=== PATIENT | female | born 1980 ===

== ENCOUNTER 2024-05-11 08:16 | Outpatient (REF) | payer MEDICAID, SELFPAY ==
--- NOTE | ~2024-05-11 | XR_ITS ---
EXAMINATION: XR HIP LEFT 3 VIEWS CLINICAL INFORMATION: Pain in left hip M25.552. COMPARISON: None available. TECHNIQUE: AP view of the pelvis as well as AP and frog-leg lateral views of the left hip. FINDINGS: No acute fracture or dislocation. No significant joint space narrowing. Tiny bilateral acetabular marginal osteophytes. No osseous erosion. No evidence of femoral head avascular necrosis. Surgical coils and clips within the left lower quadrant. No abnormal soft tissue calcification. XR/XR hip LT min 2V IMPRESSION: Minimal bilateral hip arthrosis. Electronically signed by: Carlos Luis MD 07/06/2024 12:12 PM [facility]
== END 2024-05-11 08:17 | disposition home or self-care (01) ==
LOC: HO.HOSX 08:16
PROVIDERS: Visit Provider Physician Assistant
DX: M25.552 Pain in left hip (principal); M53.3 Sacrococcygeal disorders, not elsewhere classified; M76.892 Other specified enthesopathies of left lower limb, excluding foot
CPT/HCPCS: 73502; 99212

== ENCOUNTER 2024-05-11 10:21 | Outpatient (AMB) | payer MEDICAID, SELFPAY ==
--- NOTE | 2024-05-11 10:38 | A.OFFVIS_ITS ---
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 Patient reports constant pain for about 1-1.5 months after she had a slip and fall. Her pain increases with sleeping on her side, prolong sitting, standing and bending over. Her pain is located in her lower back that radiates down her leg and into her groin area. States having a tingling sensation and denies numbness. Finds relief with ibuprofen and Tylenol. 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 She reports she slipped and fell landing on her left hip, about 2 months ago. She currently states she has constant pain in her groin area that radiates up to her lower back and down to her leg. Her pain is aggravated with activities, walking long distances, going downstairs, sleeping on her left side, prolonged sitting and bending. She also reports a tingling sensation however she denies any numbness. She takes ibuprofen and Tylenol that provides her relief for a few hours. 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 Review of Systems Const All systems reviewed & are unremarkable except as noted in HPI and below Physical Exam Vital Signs: BMI result Body Mass Index 39.6 Const General: cooperative, healthy appearing, comfortable, no acute distress, well developed and alert Orientation/consciousness: patient oriented x3 HEENT Head: Yes normal to inspection, Yes normocephalic and Yes atraumatic Eyes General: appearance normal, both eyes and all related structures Resp Effort & Inspection: normal respiratory effort and able to speak in complete sentences Cardio Rate: regular rate Peripheral pulses: Peripheral pulses 2+ throughout GI Palpation (GI): Soft to palpation Skin Lesions: no lesions Rashes: no rashes Neuro General: patient oriented x3 Extrem Other: Left hip: Normal to inspection. No pain with ROM of the hip. Pain along the greater trochanter. No pain with hip flexion or abduction. Positive tenderness along the SI joint, Positive SLR. NVI. Results Reviewed Results Reviewed: Xrays were obtained in the office today and personally reviewed by me of the left hip are negative for severe oa Assessment & Plan Assessment & Plan (1) Pain of left sacroiliac joint: Code(s): M53.3 - Sacrococcygeal disorders, not elsewhere classified Category: Medical (2) Tendonitis of left hip flexor: Code(s): M76.892 - Other specified enthesopathies of left lower limb, excluding foot Category: Medical Plan We discussed options which include PT, NSAIDs and injections. The patient will defer on the injection today and proceed with PT and NSAIDs. A prescription of Celebrex was sent to her pharmacy to take twice a day for 2 weeks to help with her discomfort. If symptoms persist, she will contact me for an injection, oth erwise, PRN. Orders: Orders PT Evaluation and Treatment Today M53.3 - Sacrococcygeal disorders, not elsewhere classified, M76.892 - Other specified enthesopathies of left lower limb, excluding foot XR hip LT min 2V Today M25.552 - Pain in left hip Medications: New celecoxib (Celebrex) 200 mg PO BID 60 caps 3RF 30 days Patient Instructions: Scribed for Glenys Fitzgerald PA-C, by Guanako Long emergency medical service manager, on 05/11/2024 at 10:00 AM EST.? I, Glenys Fitzgerald PA-C, have personally reviewed and agree with the information entered by the scribe. Coding Level of Care Code New Pt Level 3 (99205) Complex EM visit Add On G2211 Diagnoses Pain of left sacroiliac joint M53.3 Tendonitis of left hip flexor M76.892
[2024-05-11 10:44] VITALS: BMI 39.6
== END 2024-05-11 13:25 | disposition home or self-care (01) ==
PROVIDERS: PCP Nurse Practitioner Family; Visit Provider Physician Assistant
DX: M53.3 Sacrococcygeal disorders, not elsewhere classified (principal); M76.892 Other specified enthesopathies of left lower limb, excluding foot
CPT/HCPCS: 99203

== ENCOUNTER 2024-08-04 10:03 | Outpatient (AMB) | payer MEDICAID, SELFPAY ==
--- NOTE | 2024-08-04 10:07 | MHC.OFFVIS ---
Vital Signs 08/04/24 10:10 Height 5 ft Weight 206 lb BMI 40.2 BP 135/73 Blood Pressure Location Lt brachial Position Sitting Respiration 16 Pulse 79 Pulse Source Pulse Oximeter Pulse Oximetry (%) 96 Oxygen Delivery Method Room Air Intake Visit Reasons: Left lumbar radiculopathy Smoking Pipe Driller And Threader Required: Yes Smoking Pipe Driller And Threader Services: Smoking Pipe Driller And Threader Present Smoking Pipe Driller And Threader Name: [id number] Martinez Allergies No Known Allergies Allergy (Verified 08/04/24 10:12) Medication List - Last Reconciled 08/04/24 by LUCERO Pérez acetaminophen 1,000 mg PO TID PRN benzonatate 200 mg PO BID-TID PRN bismuth subsalicylate 524 mg PO QID PRN clotrimazole 1% 1 appful vaginal BEDTIME ibuprofen 800 mg PO Q8H PRN ketoconazole 2% 1 appl topical BID loperamide 2 mg PO Q4H PRN metronidazole 500 mg PO BID nystatin 1 appl topical QID PNV,calcium 72-iron,carb-folic 29 mg iron- 1 mg 1 tab PO DAILY psyllium 1 packet PO DAILY HPI HPI Left lumbar radiculopathy: Details: Patient is a pleasant 44 years old Chinese speaking, morbidly obese female with history of chronic low back pain, sacroiliac joint pain, hip arthritis, prediabetes, and obesity, presents today for evaluation for lower back pain with left sided radiculopathy. Pain has been present for about 5 months. Reports slip and fall on her left hip last summer. Back pain is axial and also radiates into her left buttock and into left lateral hip and left groin and into left anterior thigh. Pain does not radiate past knee level. She also presents with left groin pain especially with getting out of car or bed. Denies previous spine or hip surgery. Minimal bilateral hip arthrosis noted on most recent hip xray. No spine imaging is available for review today. Pain affects her daily activities and functioning, mobility, work, sleep, social interactions. To this point she has not tried any dedicated conservative treatment in the forms of physical therapy, chiropractic, massages, TENS unit, acupuncture or injections. She was referred to [facility] in April 2024 but reports this is significantly far away from her home and she interested in PT closer to her home. 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 Denies any fever or chills, weakness, foot drop, bladder or bowel dysfunction, or saddle anesthesia. Pain is constant, rated at 9/10 and worse during the day and better with rest. Location: Lower back pain radiates into left lateral hip and anterior thigh and groin Duration: Chonic pain, worsening for past 5 months Characteristics of symptom or complaint: Aching, shooting, radiating, spasms, numbness, pressure, heavy, sore Aggravating or associated factors: Walking, sitting, bending, lifting, twisting, cold weather, sleep on left Relieving factors: Tylenol, Ibuprofen, activity modifications, hot shower Treatment: None [facility] Medical History (Updated 08/04/24 @ 10:39 by LUCERO Pérez) Low back pain radiating to left lower extremity Tendonitis of left hip flexor Pain of left sacroiliac joint Morbid obesity with BMI of 40.0-44.9, adult Social History (Updated 08/04/24 @ 18:45 by LUCERO Pérez) Patient Tobacco Use Status: Never used Tobacco Current occupational status: employed 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 Alert and oriented. Mood and affect appropriate. Follows and participates in conversation appropriately. Respiratory effort is unlabored. No cough. Able to transition from sit to stand unassisted. Ambulates with bilaterally normal heel strike and toe off. General: Yes no CVA tenderness Back/Spine/Pelvis Other: Patient is able to walk and stand on heels and tip toes with no difficulties demonstrating good motor tone. No limping. Can flex forward to 70-75 degrees and extend to 5-10 degrees before experiencing lumbar pain. Demonstrates 5/5 strength of quadriceps bilaterally as well as flexion/dorsiflexion of bilateral feet against resistance. 2+ pedal pulses bilaterally. Straight leg rise with dorsiflexion negative bilaterally. +2 patellar and achilles reflexes bilaterally. Facet loading test positive bilaterally. Opal sign, Vaughn?s, Gaenslen, Pelvic compression and Stinchfield tests are positive on the left. Moderate left groin pain with external left hip rotations. Valsalva maneuver negative. Back: no CVA tenderness Cervical Spine: cervical ROM normal, cervical muscular tenderness and No Cervical spine tenderness Thoracic/Lumbar Spine: thoracic and lumbar spine normal to inspection, No Thoracic/lumbar spine scar(s), Lasegue's sign negative, straight leg raise negative bilaterally, pain with thoraco-lumbar ROM, paraspinal muscle tenderness on the left greater than right, No thoracic spinal tenderness and No lumbar spinal tenderness Pelvis: buttock tenderness on the left Sacroiliac joints: on the right nontender and on the left tender to palpation Extrem General: Yes capillary refill normal, Yes no clubbing, cyanosis or edema and Yes no calf tenderness Results Reviewed Results Reviewed: XR HIP LEFT 3 VIEWS 05/11/24 CLINICAL INFORMATION: Pain in left hip M25.552. FINDINGS: No acute fracture or dislocation. No significant joint space narrowing. Tiny bilateral acetabular marginal osteophytes. No osseous erosion. No evidence of femoral head avascular necrosis. Surgical coils and clips within the left lower quadrant. No abnormal soft tissue calcification. IMPRESSION: Minimal bilateral hip arthrosis. Assessment & Plan Assessment & Plan (1) Morbid obesity with BMI of 40.0-44.9, adult: Code(s): E66.01 - Morbid (severe) obesity due to excess calories; Z68.41 - Body mass index [BMI] 40.0-44.9, adult Category: Medical (2) Low back pain radiating to left lower extremity: Code(s): M54.50 - Low back pain, unspecified; M79.605 - Pain in left leg Category: Medical (3) Sacroiliac joint pain: Code(s): M53.3 - Sacrococcygeal disorders, not elsewhere classified Category: Medical (4) Lumbar spondylosis: Code(s): M47.816 - Spondylosis without myelopathy or radiculopathy, lumbar region Category: Medical (5) Osteoarthritis of left hip: Code(s): M16.12 - Unilateral primary osteoarthritis, left hip Category: Medical Plan Lumbar spine and SIJ imaging to assess degree of degenerative changes, any subluxation, listhesis, compression fractures or pars defects. Recommend formal physical therapy to reduce low back, hip and SIJ pain and optimize mobility, improve strength, proprioception, and neuromuscular coordination. Script provided at PT location closer to patient's home. If no improvement with PT, will consider left SIJ vs left hip fluoroscopy guided therapeutic injection. Encouraged daily physical activity and home exercise, adequate hydration, weight loss, good posture, and activity modifications. All questions were answered and the patient is in agreement of plan. Follow up after PT/xray results and sooner as needed. Orders: Orders XR lumbar spine 4V min Today M53.3 - Sacrococcygeal disorders, not elsewhere classified, M54.50 - Low back pain, unspecified, M79.605 - Pain in left leg XR sacroiliac joint min 3V Today M53.3 - Sacrococcygeal disorders, not elsewhere classified PT Evaluation and Treatment Today M16.12 - Unilateral primary osteoarthritis, left hip, M47.816 - Spondylosis without myelopathy or radiculopathy, lumbar region, M53.3 - Sacrococcygeal disorders, not elsewhere classified, M54.50 - Low back pain, unspecified, M79.605 - Pain in left leg Coding Level of Care Code New Pt Level 4 (90852) Complex EM visit Add On G2211 Diagnoses Morbid obesity with BMI of 40.0-44.9, adult E66.01; Z68.41 Low back pain radiating to left lower extremity M54.50; M79.605 Sacroiliac joint pain M53.3 Lumbar spondylosis M47.816 Osteoarthritis of left hip M16.12
[2024-08-04 10:10] VITALS: BP 135/73; PULSE 79; RESP 16; O2SAT 96; BMI 40.2
== END 2024-08-04 10:46 | disposition home or self-care (01) ==
PROVIDERS: PCP Nurse Practitioner Family; Referring Provider Physician Assistant; Visit Provider Nurse Practitioner Family
DX: E66.01 Morbid (severe) obesity due to excess calories (principal); Z68.41 Body mass index [BMI] 40.0-44.9, adult; M54.50 Low back pain, unspecified; M79.605 Pain in left leg; M53.3 Sacrococcygeal disorders, not elsewhere classified; M47.816 Spondylosis without myelopathy or radiculopathy, lumbar region; M16.12 Unilateral primary osteoarthritis, left hip
CPT/HCPCS: 99204

== ENCOUNTER 2024-08-04 10:03 | Outpatient (REF) | payer MEDICAID, SELFPAY ==
--- NOTE | ~2024-08-04 | XR_ITS ---
EXAMINATION: XR SACROILIAC JOINT 3 OR MORE VIEWS HISTORY: M53.3 - Sacrococcygeal disorders, not elsewhere classified COMPARISON: There are no prior studies available for comparison. FINDINGS: Three views of the bilateral sacroiliac joints are submitted. There is increased sclerosis at the superior aspects of the joints which appears predominantly ileal in location. There is no fracture or dislocation. The joint spaces are maintained. No erosions are identified. The soft tissues are unremarkable. XR/XR sacroiliac joint min 3V IMPRESSION: Increased sclerosis at the superior aspects of the sacroiliac joints which appears predominantly ileal in location. No evidence of significant stenosis or erosions. Electronically signed by: Sylvester Watson MD 08/10/2024 09:25 AM [facility]
--- NOTE | ~2024-08-04 | XR_ITS ---
EXAMINATION: XR LUMBAR SPINE 4 OR MORE VIEWS HISTORY: M54.50 - Low back pain, unspecified COMPARISON: There are no prior studies for comparison. FINDINGS: AP, lateral, bilateral oblique and coned down views of the lumbar spine are submitted. Osseous mineralization is normal. Five nonrib-bearing lumbar vertebral bodies are identified, maintaining normal height and alignment without evidence of fracture or spondylolisthesis. The intervertebral disc spaces are preserved. The posterior elements are intact. There is no spondylolysis. The visualized paraspinal soft tissues are unremarkable. XR/XR lumbar spine 4V min IMPRESSION: Unremarkable examination of the lumbar spine. Electronically signed by: Sylvester Watson MD 08/10/2024 09:22 AM [facility]
== END 2024-08-04 10:04 | disposition home or self-care (01) ==
LOC: HO.XRAY 10:03
PROVIDERS: PCP Nurse Practitioner Family; Referring Provider Physician Assistant; Visit Provider Nurse Practitioner Family
DX: M54.50 Low back pain, unspecified (principal); M79.605 Pain in left leg; M53.3 Sacrococcygeal disorders, not elsewhere classified; M47.816 Spondylosis without myelopathy or radiculopathy, lumbar region; M16.12 Unilateral primary osteoarthritis, left hip; E66.01 Morbid (severe) obesity due to excess calories; Z68.41 Body mass index [BMI] 40.0-44.9, adult
CPT/HCPCS: 72110; 72202; 99212

== ENCOUNTER → 2024-08-04 10:59 | Outpatient (BNV) | payer MEDICAID, SELFPAY | PROVIDERS: PCP Nurse Practitioner Family; Referring Provider Physician Assistant; Visit Provider Radiology Diagnostic Radiology | DX: M54.50 Low back pain, unspecified (principal); M53.3 Sacrococcygeal disorders, not elsewhere classified | CPT/HCPCS: 72110; 72202 ==